=== PATIENT | female | born 1990 | race Hispanic/Latino ===

== ENCOUNTER 2023-03-12 09:10 | Emergency (ER) | payer OTHER ==
[~2023-03-12] VITALS: Ht 162.6 cm; Wt 76.6 kg
[2023-03-12 11:43] VITALS: TEMP 97.9; O2SAT 99
[2023-03-12 11:48] LABS: BASO % 0.3 % (0.0-1.0); EOS % 0.4 % (0.0-3.0); HEMATOCRIT 38.8 % (36.0-47.0); HEMOGLOBIN 13.3 g/dl (12.0-15.5); LYMPH # 2.3 10^3/uL (1.5-5.0); LYMPH % 23.9 % (24.0-44.0); MEAN CORPUSCULAR HEMOGLOBIN 30.1 pg (27.0-33.0); MEAN CORPUSCULAR HGB CONC 34.3 g/dl (32.0-36.5); MEAN CORPUSCULAR VOLUME 87.8 fl (80.0-96.0); MONO # 0.5 10^3/uL (0.0-0.8); MONO % 5.6 % (2.0-8.0); NEUTROPHILS # 6.6 10^3/uL (1.5-8.5); NEUTROPHILS % 69.4 % (36.0-66.0); PLATELET COUNT, AUTOMATED 403 10^3/uL (150-450); RED BLOOD COUNT 4.42 10^6/uL (4.00-5.40); WHITE BLOOD COUNT 9.6 10^3/uL (4.0-10.0)
[2023-03-12 11:59] VITALS: BP 142/86
[2023-03-12 12:18] LABS: CPK CREATINE PHOSPHOKINASE 84 U/L (34-145)
[2023-03-12 12:22] LABS: ALBUMIN 4.2 G/DL (3.2-5.2); ALKALINE PHOSPHATASE 97 U/L (46-116); ALT/SGPT 14 U/L (7.0-40); AST/SGOT 17 U/L (<34); BILIRUBIN,DIRECT 0.2 MG/DL (<0.4); BILIRUBIN,TOTAL 0.7 MG/DL (0.3-1.2); BLOOD UREA NITROGEN 13 MG/DL (9-23); CALCIUM LEVEL 9.3 MG/DL (8.5-10.1); CARBON DIOXIDE LEVEL 24 MMOL/L (20-31); CHLORIDE LEVEL 102 MMOL/L (98-107); CK-MB VALUE MASS < 1.0 NG/ML (<3.6); CREATININE FOR GFR 0.72 MG/DL (0.55-1.30); GLOMERULAR FILTRATION RATE > 60.0 (>60); GLUCOSE, FASTING 86 MG/DL (60-100); MB/CK RELATIVE INDEX 1.19 (< OR =4); POTASSIUM SERUM 3.9 MMOL/L (3.5-5.1); SODIUM LEVEL 136 MMOL/L (136-145); TOTAL PROTEIN 7.4 G/DL (5.7-8.2)
[2023-03-12 12:47] LABS: RSV AMPLIFICATION NEGATIVE (NEGATIVE)
[2023-03-12] MEDS ORDERED: HYDR50TA70 PO (13:13)
[2023-03-12] MEDS ORDERED: MACR100C43 PO (13:17)
== END 2023-03-12 13:33 | disposition home or self-care (01) ==
LOC: M ED 09:10
DX: F41.9 Anxiety disorder, unspecified (principal); Z88.2 Allergy status to sulfonamides

== ENCOUNTER → 2023-03-25 | Outpatient (CLI) | payer OTHER ==
[~2023-03-25] MED LIST: HYDR50TA70 PO; MACR100C43 PO
== END ==
LOC: M PLALAB 09:06
PROVIDERS: ATTEND Specialist
DX: N92.6 Irregular menstruation, unspecified (principal)
CPT/HCPCS: 36415; 84702; G0463

== ENCOUNTER → 2023-10-14 | Outpatient (REF) | payer OTHER | LOC: M SFHCWAGY 14:49 | PROVIDERS: ATTEND Nurse Practitioner Family | DX: Z12.4 Encounter for screening for malignant neoplasm of cervix (principal) | CPT/HCPCS: 87624; G0123 ==

== ENCOUNTER 2023-10-20 06:28 | Emergency (ER) | payer OTHER ==
[~2023-10-20] VITALS: Ht 162.6 cm; Wt 87.2 kg
[2023-10-20] MEDS ORDERED: ESCITALOPRAM (06:36)
[2023-10-20 08:00] LABS: BASO % 0.3 % (0.0-1.0); EOS # 0.1 10^3/uL (0.0-0.5); EOS % 1.1 % (0.0-3.0); HEMATOCRIT 38.1 % (36.0-47.0); LYMPH # 2.1 10^3/uL (1.5-5.0); LYMPH % 28.9 % (24.0-44.0); MEAN CORPUSCULAR HEMOGLOBIN 30.3 pg (27.0-33.0); MEAN CORPUSCULAR HGB CONC 34.1 g/dl (32.0-36.5); MEAN CORPUSCULAR VOLUME 88.8 fl (80.0-96.0); MONO # 0.4 10^3/uL (0.0-0.8); MONO % 5.9 % (2.0-8.0); NEUTROPHILS # 4.5 10^3/uL (1.5-8.5); NEUTROPHILS % 63.5 % (36.0-66.0); PLATELET COUNT, AUTOMATED 386 10^3/uL (150-450); RED BLOOD COUNT 4.29 10^6/uL (4.00-5.40); WHITE BLOOD COUNT 7.1 10^3/uL (4.0-10.0)
[2023-10-20] MEDS: ONDANSETRON 4MG 2ML VIAL IV ONE (08:02)
[2023-10-20] MEDS: ACETAMINOPHEN 325 MG TAB PO ONE (08:03)
[2023-10-20 08:25] LABS: LIPASE 26 U/L (12-53)
[2023-10-20 08:28] LABS: ALBUMIN 3.7 G/DL (3.2-5.2); ALKALINE PHOSPHATASE 100 U/L (46-116); ALT/SGPT 19 U/L (7.0-40); AST/SGOT 33 U/L (<34); BILIRUBIN,DIRECT 0.1 MG/DL (<0.4); BILIRUBIN,TOTAL 0.6 MG/DL (0.3-1.2); BLOOD UREA NITROGEN 11 MG/DL (9-23); CARBON DIOXIDE LEVEL 25 MMOL/L (20-31); CHLORIDE LEVEL 105 MMOL/L (98-107); GLOMERULAR FILTRATION RATE > 60.0 (>60); GLUCOSE, FASTING 96 MG/DL (60-100); POTASSIUM SERUM 4.5 MMOL/L (3.5-5.1); SODIUM LEVEL 138 MMOL/L (136-145); TOTAL PROTEIN 7.2 G/DL (5.7-8.2)
[2023-10-20 08:30] LABS: HCG, SERUM QUALITATIVE NEGATIVE (NEGATIVE)
[2023-10-20 10:00] VITALS: BP 133/76; TEMP 98.7; O2SAT 100
== END 2023-10-20 10:03 | disposition home or self-care (01) ==
LOC: M ED 06:28
DX: N20.0 Calculus of kidney (principal); K80.20 Calculus of gallbladder without cholecystitis without obstruction; K21.9 Gastro-esophageal reflux disease without esophagitis; Z87.442 Personal history of urinary calculi; Z86.16 Personal history of COVID-19; Z88.2 Allergy status to sulfonamides
CPT/HCPCS: 76775; 80048; 80076; 81001; 83690; 84703; 85025; 96374; 99284; J2405

== ENCOUNTER → 2023-11-04 | Outpatient (CLI) | payer OTHER ==
[~2023-11-04] MED LIST changes: +ESCITALOPRAM
== END ==
LOC: M WHC 13:34
PROVIDERS: ATTEND Nurse Practitioner Family
DX: N63.10 Unspecified lump in the right breast, unspecified quadrant (principal)
CPT/HCPCS: 76642; 77066; G0279

== ENCOUNTER → 2025-02-16 | Outpatient (REF) ==
[2025-02-18 16:27] LABS: HERPES ZOSTER, VARICELLA IgG 11.10 S/CO (>=1.00); RUBEOLA IgG ANTIBODY > 300.00 AU/mL (>16.49)
== END ==
LOC: M LAB 10:06
PROVIDERS: ATTEND Family Medicine
DX: Z01.89 Encounter for other specified special examinations (principal)

== ENCOUNTER 2025-03-22 06:17 | Day surgery (SDC) | payer OTHER ==
[~2025-03-22] VITALS: Ht 162.6 cm; Wt 93.4 kg
[~2025-03-22 06:17] MED LIST changes: +ACETAMINOPHEN 500 MG TAB PO ONE; +CALCCHW19 PO; +LEXA1TAB2 PO; +PREN1CHW6 PO; +SCOPOLAMINE 1MG TRANSDERMAL PATCH TOP ONE
[2025-03-22] MEDS ORDERED: LR 1,000 ML IV SCH ×2 (06:30→08:20)
[2025-03-22] MEDS ORDERED: FAMOTIDINE IV BAG 20 MG in IV 1 EA IV ONE (06:30)
[2025-03-22] MEDS: SCOPOLAMINE 1MG TRANSDERMAL PATCH TOP ONE (06:52)
[2025-03-22] MEDS ORDERED: MIDAZOLAM INJ 2 MG/2 ML VIAL As Ordered ONE (07:15)
[2025-03-22] MEDS ORDERED: LIDOCAINE 2% 100 MG/5 ML SDV (FOR ANES.) As Ordered ONE (07:17)
[2025-03-22] MEDS ORDERED: ONDANSETRON 4MG 2ML VIAL As Ordered ONE (07:17)
[2025-03-22] MEDS ORDERED: dexAMETHasone 4 MG/ML 1 ML VIAL As Ordered ONE (07:17)
[2025-03-22] MEDS ORDERED: KETOROLAC 30 MG/ML 1 ML VIAL As Ordered ONE (07:17)
[2025-03-22] MEDS ORDERED: ACETAMINOPHEN 1000MG/100ML IV BAG As Ordered ONE (07:19)
[2025-03-22] MEDS: LIDOCAINE 1% SDV 30 ML VIAL As Ordered ONE (08:00)
[2025-03-22] MEDS ORDERED: SILVER NITRATE APPLICATOR (1 = QTY 10) As Ordered ONE (08:03)
[2025-03-22] MEDS ORDERED: ONDANSETRON 4MG 2ML VIAL IV PRN (08:20)
[2025-03-22] MEDS ORDERED: MEPERIDINE 25 MG/ML 1 ML VIAL IV PRN (08:20)
[2025-03-22] MEDS ORDERED: HYDROMORPHONE HCL 0.5 MG/0.5 ML SYRINGE IV PRN (08:20)
[2025-03-22 09:17] VITALS: BP 123/77; TEMP 97.4; O2SAT 100
== END 2025-03-22 09:25 | disposition home or self-care (01) ==
LOC: M SDC 06:17
PROVIDERS: ATTEND General Practice
DX: N96 Recurrent pregnancy loss (principal); N84.0 Polyp of corpus uteri; Z88.2 Allergy status to sulfonamides; Z91.040 Latex allergy status
CPT/HCPCS: 36415; 58558; 81025; 86850; 86900; 86901; 88305; J0131; J1100; J1885; J2250; J2405; J3010

== ENCOUNTER → 2025-04-07 | Outpatient (REF) ==
[~2025-04-07] MED LIST changes: -ACETAMINOPHEN 500 MG TAB PO ONE; -SCOPOLAMINE 1MG TRANSDERMAL PATCH TOP ONE
== END ==
LOC: M EMP 09:01
PROVIDERS: ATTEND Family Medicine
DX: Z11.52 Encounter for screening for COVID-19 (principal)

== ENCOUNTER → 2025-07-18 | Outpatient (REF) ==
[2025-07-18 11:23] LABS: SOFIA COVID ANTIGEN NEGATIVE (NEGATIVE)
== END ==
LOC: M EMP 10:47
PROVIDERS: ATTEND Family Medicine
DX: Z01.89 Encounter for other specified special examinations (principal)